=== PATIENT | male | born 1975 | race African-American/Black ===

== ENCOUNTER 2018-06-08 10:57 | Emergency (ER) | payer BC, MEDICARE, OTHER ==
[~2018-06-08] VITALS: Ht 162.6 cm; Wt 115.2 kg
[~2018-06-08 10:57] MED LIST: IBUP-1007 PO
[2018-06-08 11:08] VITALS: BP 161/101
[2018-06-08] MEDS ORDERED: AMOX875T PO (12:13)
[2018-06-08] MEDS ORDERED: CHLO15MO2 PO (12:13)
--- NOTE | 2018-06-08 12:13 | PHYS DOC ---
Past Medical History Past Medical History: Hypertension, Hyperthyroid, Other Additional Past Medical Histor: Pervasive Developmental,Impulse Control&Obs/ Comp D/Os,Sleep Apnea Past Surgical History: Other Additional Past Surgical Histo: Unknown. Alcohol Use: None Drug Use: None Adult General Chief Complaint Chief Complaint: SORE THROAT HPI HPI Patient is a 43 year old male with history of autism, hypertension, hypothyroidism, who presents with mother. Mother is giving most of the speaking. Mother states patient is being cared for by an agency. She states patient has-been complaining of sore throat for 2 weeks. Mother also states patient has been complaining his gums are bothering him. Mother denies patient having any fever coughing or congestion. Patient denies any difficulty swallowing. Review of Systems Review of Systems Constitutional: Denies fever or chills [] Eyes: Denies change in visual acuity, redness, or eye pain [] HENT: Reports sore throat, reports his gum bothering him. Denies nasal congestion Respiratory: Denies cough or shortness of breath [] Cardiovascular: No additional information not addressed in HPI [] GI: Denies abdominal pain, nausea, vomiting, bloody stools or diarrhea [] : Denies dysuria or hematuria [] Musculoskeletal: Denies back pain or joint pain [] Integument: Denies rash or skin lesions [] Neurologic: Denies headache, focal weakness or sensory changes [] All other systems were reviewed and found to be within normal limits, except as documented in this note. Physical Exam Physical Exam Constitutional: Well developed, well nourished, no acute distress, non-toxic appearance. [] HENT: Normocephalic, atraumatic, bilateral external ears normal, oropharynx moist, no oral exudates, nose normal. [] Posterior pharynx with no erythema, air way is open. Gingivitis noted throughout his gums. He has poor dentition, dental caries noted throughout his teeth. Eyes: PERRLA, EOMI, conjunctiva normal, no discharge. [] Neck: Normal range of motion, no tenderness, supple, no stridor. [] Cardiovascular:Heart rate regular rhythm, no murmur [] Lungs & Thorax: Bilateral breath sounds clear to auscultation [] Abdomen: Bowel sounds normal, soft, no tenderness, no masses, no pulsatile masses. [] Skin: Warm, dry, no erythema, no rash. [] Back: No tenderness, no CVA tenderness. [] Extremities: No tenderness, no cyanosis, no clubbing, ROM intact, no edema. [] Neurologic: Alert and oriented X 2, normal motor function, normal sensory function, no focal deficits noted. [] Psychologic: Affect flat Current Patient Data Vital Signs Vital Signs Date Time Temp Pulse Resp B/P (MAP) Pulse Ox O2 Delivery O2 Flow Rate FiO2 06/08/18 11:08 98.1 64 16 161/101 (121) 99 Room Air 98.1 Lab Values Laboratory Tests Test 06/08/18 11:21 Group A Streptococcus Rapid Negative (NEGATIVE) EKG EKG [] Radiology/Procedures Radiology/Procedures [] Course & Med Decision Making Course & Med Decision Making Pertinent Labs and Imaging studies reviewed. (See chart for details) This is a 43-year-old male patient with history of autism presenting with mother with complaints of sore throat for 2 weeks, negative rapid strep, also complaining of gums bothering him, noted for gingivitis and dental carriers with poor dentition. I recommended this patient follow-up with the dentist. Given prescription for Peridex, amoxicillin. Tylenol /Motrin for pain or fever. Saltwater gargles also recommended. Follow-up with PCP in 2 weeks as needed. Provided parent return precautions and discharged in stable condition Staff Physician Addendum: I was working in the ER during the course of this patient's visit. I was available for consultation as needed, but I was not directly involved in the care of this patient. Dragon Disclaimer Dragon Disclaimer This electronic medical record was generated, in whole or in part, using a voice recognition dictation system. Departure Departure Impression: Primary Impression: Gingivitis Additional Impressions: Dental caries Acute pharyngitis Disposition: 01 HOME, SELF-CARE Condition: STABLE Referrals: KARISSA RAYA MD (PCP) Follow-up with the primary care doctor in 1-2 weeks as well as a dentist Patient Instructions: Dental Caries, Gingivitis, [id number], Viral Pharyngitis Additional Instructions: Domingo was evaluated in the emergency room. His rapid strep test was negative. Ensure he completes his antibiotics. Ensure he follows up with his dentist in the next 1-2 weeks. He can also follow up with his own primary care doctor in 1- 2 weeks as needed. Give him Tylenol as needed for pain and Motrin as needed for pain. You can also use saltwater gargles as needed. Bring him back to the emergency room at any point symptoms worsen. Scripts Chlorhexidine Gluconate (PERIDEX) 15 Ml Mouthwash 15 ML PO BID, #946 ML Prov: TRANG HARRIS APRN 06/08/18 Amoxicillin (AMOXICILLIN) 875 Mg Tablet 1 TAB PO BID, #20 TAB Prov: TRANG HARRIS APRN 06/08/18 Problem Qualifiers Additional Impressions: Acute pharyngitis Pharyngitis/tonsillitis etiology: unspecified etiology Qualified Codes: J02.9 - Acute pharyngitis, unspecified TRANG HARRIS APRN Jun 08, 2018 12:13 GREGORIO CAICEDO MD Jun 08, 2018 15:50
== END 2018-06-08 12:20 | disposition home or self-care (01) ==
LOC: ER 10:57
DX: J02.9 Acute pharyngitis, unspecified (principal); K02.9 Dental caries, unspecified; K05.10 Chronic gingivitis, plaque induced; I10 Essential (primary) hypertension; E05.90 Thyrotoxicosis, unspecified without thyrotoxic crisis or storm
CPT/HCPCS: 87070; 87880; 99283

== ENCOUNTER → 2019-03-13 | Outpatient (CLI) | payer MEDICARE, BC ==
[~2019-03-13] MED LIST changes: +AMOX875T PO; +CHLO15MO2 PO
--- NOTE | 2019-03-13 16:36 | RAD ---
Thyroid ultrasound HISTORY: Elevated PTH. Hypercalcemia. FINDINGS: Right lobe of the thyroid measures 2.4 x 0.7 x 1.2 cm. No focal mass or cyst is identified. No areas of hypervascularity. Left lobe of the thyroid measures 2.8 x 0.7 x 1.1 cm. No evidence of cyst or nodule. No areas of abnormal hypervascularity. Thyroid isthmus measures 1.5 mm. Note that visualization of the thyroid is compromised by large patient body habitus. IMPRESSION: No significant sonographic abnormality. Exam may be limited by body habitus. Electronically signed by: Sukhjinder Rivas MD (03/13/2019 4:34 PM) [id number]
== END | disposition home or self-care (01) ==
LOC: US 14:52
PROVIDERS: ATTEND Family Medicine
DX: E83.52 Hypercalcemia (principal); E34.9 Endocrine disorder, unspecified
CPT/HCPCS: 76536

== ENCOUNTER → 2019-08-20 | Outpatient (CLI) | payer MEDICARE, OTHER ==
--- NOTE | 2019-08-20 09:34 | KCIC ---
Renal ultrasound complete History: Moderate chronic renal disease Sonographic examination of the kidneys was performed and multiple static images were obtained. Right kidney: The right kidney is seen with no hydronephrosis and measures 10.5 cm in length. Left kidney: The left kidney is seen with no hydronephrosis and measures 12.5 cm in length. Urinary bladder: The urinary bladder appears normal. The prevoid volume is 155 mL. The post void volume is 14 mm. Impression: No hydronephrosis. Electronically signed by: Darrion Jade III, MD (08/20/2019 9:31 AM) [id number]
== END | disposition home or self-care (01) ==
LOC: KCIC US 08:46
PROVIDERS: ATTEND Internal Medicine Nephrology
DX: N18.3 Chronic kidney disease, stage 3 (moderate) (principal)
CPT/HCPCS: 76770